=== PATIENT | female | born 1980 | race Caucasian/White ===

== ENCOUNTER 2018-03-01 08:39 | Emergency (ER) | payer OTHER ==
[~2018-03-01] VITALS: Ht 162.6 cm; Wt 92.0 kg
[~2018-03-01 08:39] MED LIST: EFFEXOR XR150 MG PO; MOTRIN800 MG PO; TOPAMAX50 MG PO; WELLBUTRIN75 MG PO
[2018-03-01 09:19] LABS: ALBUMIN 4.4 g/dL (3.2-4.8); CHLORIDE 100 mEq/L (99-109); POTASSIUM 3.1 mEq/L (3.7-5.4); SODIUM 138 mEq/L (136-147)
[2018-03-01 09:22] LABS: GLUCOSE 105 mg/dL (70-99); TOTAL PROTEIN 7.5 g/dL (6.4-8.3)
[2018-03-01 09:24] LABS: TOTAL BILIRUBIN 0.9 mg/dL (0.0-1.0)
[2018-03-01 09:25] LABS: ALKALINE PHOSPHATASE 155 IU/L (3-129); CREATININE 0.7 mg/dL (0.6-1.3); GFR ESTIMATE (CALCULATED) > 59 mL/min/
[2018-03-01 09:26] LABS: UREA NITROGEN (BUN) 10 mg/dL (9-23)
[2018-03-01 09:27] LABS: AST (GOT) 146 IU/L (2-34)
[2018-03-01 09:28] LABS: ALT (GPT) 75 IU/L (3-49)
[2018-03-01 09:29] LABS: LIPASE 37 U/L (1.0-51.0)
[2018-03-01 09:35] LABS: QUANTITATIVE HCG < 4.0 MIU/ML
[2018-03-01 09:55] LABS: WHITE BLOOD COUNT 9.7 K/uL (4.1-10.2)
[2018-03-01 09:56] LABS: HEMATOCRIT 37.6 % (36.0-46.0); HEMOGLOBIN 13.4 G/DL (11.9-15.5); MCH 40.1 PG (29.0-34.0); MCHC 35.6 G/DL (30.0-36.0); MCV 112.6 FL (83-99); PLAT.SUFFICIENCY ADEQUATE; PLATELET COUNT 253 K/uL (156-360); RBC DIS.WIDTH-CV 12.2 % (11.8-14.6); RBC DIS.WIDTH-SD 50.3 % (39-53); RED BLOOD COUNT 3.34 M/uL (3.80-5.20)
[2018-03-01 10:09] LABS: APPEARANCE CLOUDY ((CLEAR)); BILIRUBIN NEGATIVE; BLOOD NEGATIVE; COLOR AMBER ((YELLOW)); GLUCOSE (STRIP) NEGATIVE; KETONES NEGATIVE; LEUKOCYTES LARGE; NITRITE NEGATIVE; PROTEIN (STRIP) 30; SPECIFIC GRAVITY 1.017 (1.000-1.030)
[2018-03-01 10:44] LABS: BACTERIA 2+ /HPF; EPITHELIAL CELLS 2+ /HPF; MUCUS NONE SEEN /LPF; RED BLOOD CELLS 0-5 /HPF (0-5); UCUL ADDED? YES; WHITE BLOOD CELLS 40-50 /HPF (0-5)
[2018-03-01] MEDS ORDERED: ZOFRAN4 MG PO (12:47)
[2018-03-01] MEDS ORDERED: KEFLEX500 MG PO (12:47)
[2018-03-01] MEDS ORDERED: NAPROSYN500 MG PO (12:48)
[2018-03-01] MEDS ORDERED: PERCOCET 5/31 TABLET PO (13:28)
[2018-03-01 13:35] VITALS: BP 117/56
== END 2018-03-01 13:42 | disposition home or self-care (01) ==
LOC: EME 08:39
PROVIDERS: Physician Assistant
DX: N39.0 Urinary tract infection, site not specified (principal); E87.6 Hypokalemia; K76.0 Fatty (change of) liver, not elsewhere classified; R10.11 Right upper quadrant pain; R11.2 Nausea with vomiting, unspecified; R19.7 Diarrhea, unspecified; F17.200 Nicotine dependence, unspecified, uncomplicated
CPT/HCPCS: 71046; 76705; 80053; 81003; 83690; 84702; 85027; 87086; 94640; 99281; 99285; J0696; J1885; J2405; J2930; J3010; J7030

== ENCOUNTER → 2018-03-16 | Outpatient (CLI) | payer OTHER ==
[~2018-03-16] MED LIST changes: +EXFORGE HCT 5-1 EACH PO; +KEFLEX500 MG PO; +NAPROSYN500 MG PO; +NEXIUM20 MG PO; +NORCO 5/3251 TABLET PO; +PERCOCET 5/31 TABLET PO; +TOPAMAX25 MG PO; +ZOFRAN4 MG PO
== END | disposition home or self-care (01) ==
LOC: CDC 10:00
DX: Z01.810 Encounter for preprocedural cardiovascular examination (principal); K80.00 Calculus of gallbladder with acute cholecystitis without obstruction; I45.10 Unspecified right bundle-branch block
CPT/HCPCS: 93000

== ENCOUNTER 2018-03-17 08:57 | Day surgery (SDC) | payer OTHER ==
[~2018-03-17] VITALS: Ht 162.6 cm; Wt 95.7 kg
[~2018-03-17 08:57] MED LIST changes: -NORCO 5/3251 TABLET PO
[2018-03-17 09:33] VITALS: BP 150/83
[2018-03-17] MEDS ORDERED: NORCO 5/3251 TABLET PO (13:08)
[2018-03-17 15:22] VITALS: BP 133/69
[2018-03-17 16:07] VITALS: BP 137/82
[2018-03-17 17:25] VITALS: BP 130/80
== END 2018-03-17 17:29 | disposition home or self-care (01) ==
LOC: SDC
PROC: 0FT44ZZ Resection of Gallbladder, Percutaneous Endoscopic Approach (ICD-10-PCS; principal; 2018-03-17)
DX: K80.10 Calculus of gallbladder with chronic cholecystitis without obstruction (principal); I10 Essential (primary) hypertension; E66.9 Obesity, unspecified; Z68.36 Body mass index [BMI] 36.0-36.9, adult; F17.200 Nicotine dependence, unspecified, uncomplicated
CPT/HCPCS: 94640; J0330; J0690; J1100; J1170; J1885; J2250; J2405; J2710; J2765; J3010; J7643